=== PATIENT | female | born 1995 | race American Indian/Alaskan Native ===

== ENCOUNTER 2018-12-28 11:16 | Outpatient (CLI) | payer OTHER ==
[2018-12-28] MEDS ORDERED: LACTATED RINGERS 2,000 ML ONE (12:14)
[2018-12-28 12:47] VITALS: BP 107/70
[2018-12-28] MEDS ORDERED: LACTATED RINGERS 1,000 ML IV ONE (15:36)
== END 2018-12-28 13:49 | disposition home or self-care (01) ==
LOC: TRG 11:16
PROVIDERS: ATTEND Obstetrics & Gynecology
DX: O47.03 False labor before 37 completed weeks of gestation, third trimester (principal); Z3A.37 37 weeks gestation of pregnancy
CPT/HCPCS: J7120

== ENCOUNTER 2019-01-02 23:19 | Inpatient (IN) | payer OTHER ==
[2019-01-03] MEDS ORDERED: PITOCin/NS 30 UNIT/500ML 30,000 MILLIUNITS/500 ML BAG IV ONE (00:23)
[2019-01-03] MEDS ORDERED: LACTATED RINGERS 1,000 ML ONE (00:23)
[2019-01-03] MEDS ORDERED: AMPICILLIN/NS 2 GM/100 ML 2 GM/100 ML BAG IV ONE ×2 (00:25→00:33)
[2019-01-03] MEDS ORDERED: BRETHINE SUB-Q PRN (00:33)
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
[2019-01-03] MEDS ORDERED: LACTATED RINGERS 1,000 ML IV SCH (01:00)
[2019-01-03] MEDS ORDERED: PITOCin/NS 20 UNIT/1000ML DRIP 20 UNITS/1,000 ML BAG IV SCH (01:00)
[2019-01-03] MEDS ORDERED: PITOCin/NS 30 UNIT/500ML 30 UNITS/500 ML BAG IV SCH (01:00)
[2019-01-03 01:14] LABS: Hematocrit 30.6 % (30.3-42.9); Hemoglobin 10.8 gm/dl (10.1-14.3); Mean Corpuscular HGB Conc 35 % (30-34); Mean Corpuscular Volume 95 fl (79-97); Platelet Count 254 K/mm3 (140-440); Red Blood Count 3.24 M/mm3 (3.65-5.03); Red Cell Distribution Width 13.7 % (13.2-15.2)
[2019-01-03 02:02] LABS: Hepatitis C Virus Antibody Non-Reactive (NonReactive)
--- NOTE | 2019-01-03 02:03 | Ultrasound Report ---
PROCEDURE: US OB FOLLOW UP TECHNIQUE: Real-time sonography performed for focused follow-up or re-evaluation of each size/ growth parameters and amniotic fluid or re-evaluation of suspected or confirmed abnormality on prior imaging. HISTORY: Gestational age, placental location, present COMPARISONS: None . FINDINGS: MATERNAL Uterus: Within normal limits . Cervix length: cm. Internal Os: Closed . FETUS IUP: Single living intrauterine . Position: Cephalic . Placental position: Fundal, without previa . Amniotic fluid volume: Decreased at 4.2 cm. . Heart rate and rhythm: 136 BPM, Regular . anatomic survey: Not performed . MEASUREMENTS BPD: 9.1 cm corresponding to 36 weeks and 6 days . HC: 32.2 cm corresponding to 36 weeks and 2 days . AC: 33.7 cm corresponding to 37 weeks and 4 days . FL: 7.1 cm corresponding to 36 weeks and 4 days . Mean Gestational Age (composite criteria): 36 weeks and 6 days . Ratio biometry: Normal . Estimated Weight: 3121 grams +/- grams. ounces +/- .ounces. percentile. Interval growth: Appropriate . Estimated Due Date (earliest scan): 01/25/2019 . IMPRESSION: 1. Single living intrauterine gestation at approximately 36 weeks and 6 days . 2. EDC by US 01/25/2019 . This document is electronically signed by Kapil Corley MD., January 03 2019 02:00:18 AM ET
[2019-01-03] MEDS: SUBLIMAZE IV PRN ×5 (04:52→16:42)
[2019-01-03] MEDS: AMPICILLIN/NS 1 GM/50 ML 1 GM/50 ML BAG IV SCH ×4 (04:54→19:15)
[2019-01-03] MEDS ORDERED: ZOFRAN IV ONE (09:00)
--- NOTE | 2019-01-03 16:25 | Anesthesia Day of Surgery ---
Anesthesia Day of Surgery - Day of Surgery Patient Examined: Yes Patient H&P Reviewed: Yes Patient is NPO: Yes Beta Blockers: No Cardiac Clearance: No Pulmonary Clearance: No Sang's Test: N/A
[2019-01-03] MEDS ORDERED: NARCAN 2 MG/2 ML IV PRN (16:26)
--- NOTE | 2019-01-03 16:26 | Anesthesia Consultation ---
Anesthesia Consult and Med Hx - Airway Anesthetic Teeth Evaluation: Good ROM Head & Neck: Adequate Mental/Hyoid Distance: Adequate Mallampati Class: Class II Intubation Access Assessment: Probably Good - Pulmonary Exam CTA: Yes - Cardiac Exam Cardiac Exam: RRR - Pre-Operative Health Status ASA Pre-Surgery Classification: ASA2 Proposed Anesthetic Plan: Epidural - Pulmonary Hx Asthma: No COPD: No Hx Pneumonia: No - Cardiovascular System Hx Hypertension: No - Central Nervous System Hx Seizures: No Hx Psychiatric Problems: No - Endocrine Hx Renal Disease: No Hx End Stage Renal Disease: No Hx Hypothyroidism: No Hx Hyperthyroidism: No - Hematic Hx Anemia: No Hx Sickle Cell Disease: No - Other Systems Hx Alcohol Use: No
[2019-01-03] MEDS ORDERED: MARCAINE 0.25% INFILTRATI ONE (16:55)
[2019-01-03] MEDS ORDERED: fentaNYL-BUPIV 2 MCG/ML-0.125% 200 MCG/100 ML BAG EPIDURAL SCH (17:00)
[2019-01-04] MEDS ORDERED: LANSINOH TP PRN (01:47)
[2019-01-04] MEDS ORDERED: PHENERGAN PR PRN (01:47)
[2019-01-04] MEDS ORDERED: MILK OF MAGNESIA PO PRN (01:47)
[2019-01-04] MEDS ORDERED: TUCKS PAD TP PRN (01:47)
[2019-01-04] MEDS ORDERED: NORCO 5/325 PO PRN (01:47)
[2019-01-04] MEDS ORDERED: DULCOLAX PR PRN (01:47)
[2019-01-04] MEDS ORDERED: BENADRYL PO PRN (01:47)
[2019-01-04] MEDS ORDERED: SODIUM CHLORIDE FLUSH SYRINGE 10 ML IV PRN (02:00)
--- NOTE | 2019-01-04 02:03 | Procedure Note ---
OB Delivery Note - Delivery Date of Delivery: 01/04/19 Surgeon: ASCENCION KUNZ Estimated blood loss: 200cc - Vaginal Delivery presentation: vertex Delivery position: OA Intrapartum events: none Delivery augmentation: pitocin Delivery monitor: external FHT, external uterine Route of delivery: Delivery placenta: spontaneous Delivery cord: 3 umbilical vessels Episiotomy: none Delivery laceration: none Anesthesia: epidural Delivery comments: Spontaneous vaginal delivery at 00:20 of liveborn female weighing 7 lb. 7 oz. over intact perineum with apgars of 8/9. Baby placed immediately on mother's chest after delivery and dried and bulb suctioned. Spontaneous cry and respirations. 3 vessel cord double clamped and cut after cessation of pulsation. Spontaneous delivery of intact placenta and membranes by hernandez mechanism at 00:25. EBL 200 cc. Pitocin to IV fluids after delivery of placenta. Fundus firm and midline. Vaginal sweep negative. No lacerations noted. Sponge count correct. Mother and baby stable in birthing room.
[2019-01-04] MEDS: IBUPROFEN PO SCH ×4 (02:32→21:54)
[2019-01-04] MEDS: COLACE PO SCH ×2 (10:09→21:53)
[2019-01-04 20:03] LABS: Hematocrit 30.6 % (30.3-42.9); Hemoglobin 10.5 gm/dl (10.1-14.3)
[2019-01-05] MEDS: COLACE PO SCH ×2 (10:36→23:29)
--- NOTE | 2019-01-05 11:18 | Progress Note ---
Assessment and Plan - Patient Problems (1) (normal spontaneous vaginal delivery) Onset Date: 01/05/19 Current Visit: Yes Status: Resolved Plan to address problem: A: S/P - PPD #1 Doing well Asymptomatic anemia - stable P: May go home tomorrow. Subjective - Subjective Date of service: 01/05/19 Principal diagnosis: s/p - PPD #1 Interval history: Pt is feeling well without complaints. Bleeding improved. Patient reports: appetite normal, voiding normally, pain well controlled, flatus, ambulating normally, no dizzy ambulation, no nauseated [place]: doing well, bottle feeding Objective - Vital Signs Latest vital signs: Vital Signs Temp Pulse Resp BP BP Pulse Ox 01/05/19 08:20 98.5 F 67 20 127/79 97 01/04/19 17:41 98.4 F 79 20 97 01/04/19 12:55 98.4 F 85 20 131/82 98 - Exam Breasts: Present: deferred Abdomen: Present: normal appearance, soft Uterus: Present: normal, firm, fundal height below umbilicus Extremities: Present: normal - Labs Labs: Laboratory Tests 01/03/19 01/03/19 01/03/19 00:55 00:55 00:55 WBC 5.7 RBC 3.24 L Hgb 10.8 Hct 30.6 MCV 95 MCH 34 H MCHC 35 H RDW 13.7 Plt Count 254 Hemoglobin A1c RPR Nonreactive Hepatitis C Antibody HIV 1&2 Antibody Rapid HIV P24 Antigen Rubella IgG Antibody Blood Type O POSITIVE Antibody Screen Negative 01/03/19 01/03/19 01/03/19 00:55 00:55 00:55 WBC RBC Hgb Hct MCV MCH MCHC RDW Plt Count Hemoglobin A1c 4.8 RPR Hepatitis C Antibody Non-reactive HIV 1&2 Antibody Rapid Non react HIV P24 Antigen Non react Rubella IgG Antibody Immune Blood Type Antibody Screen 01/04/19 19:18 WBC RBC Hgb 10.5 Hct 30.6 MCV MCH MCHC RDW Plt Count Hemoglobin A1c RPR Hepatitis C Antibody HIV 1&2 Antibody Rapid HIV P24 Antigen Rubella IgG Antibody Blood Type Antibody Screen
--- NOTE | 2019-01-05 12:53 | Discharge Summary ---
Providers - Providers Date of Admission: 01/02/19 23:19 Date of discharge: 01/06/19 Attending physician: SHIRA HOWARD Primary care physician: SHIRA HOWARD Hospitalization Reason for admission: rupture of membranes, IUP at term Delivery: Episiotomy: none Laceration: none Other procedures: none complications: none Discharge diagnosis: IUP at term delivered baby: female Hospital course: Unremarkable. Condition at discharge: Good Disposition: DC-01 TO HOME OR SELFCARE - Discharge Diagnoses (1) (normal spontaneous vaginal delivery) Status: Resolved Plan - Discharge Medications Prescriptions: Ferrous Sulfate [Feosol 325 MG tab] 325 mg PO BID #60 tablet Ibuprofen [Motrin 600 MG tab] 600 mg PO Q6H #30 tablet Pnv No.95/Ferrous Fum/Folic AC [Prenavite Tablet] 1 each PO DAILY #30 tablet - Provider Discharge Summary Activity: routine, no sex for 6 weeks, no heavy lifting 4 weeks, no strenuous exercise Diet: routine Instructions: routine Additional instructions: [] Smoking cessation referral if applicable(refer to patient education folder for contact #) [] Refer to [facility] Booklet Call your doctor immediately for: * Fever > 100.5 * Heavy vaginal bleeding ( >1 pad per hour) * Severe persistent headache * Shortness of breath * Reddened, hot, painful area to leg or breast * Drainage or odor from incision. * Keep incision clean and dry at all times and follow doctor's instructions regarding bathing/showering - Follow up plan Follow up: SHIRA HOWARD MD [Primary Care Provider] - 6 Weeks PAP[facility] NEW CNM [Advanced Practice Nurse] - 6 Weeks
[2019-01-06] MEDS: COLACE PO SCH (10:10)
[2019-01-06] MEDS: IBUPROFEN PO SCH (10:11)
[2019-01-06 14:59] VITALS: BP 131/91
== END 2019-01-06 17:40 | disposition home or self-care (01) | DRG 775 ==
LOC: LD 23:19 → OB 01-04 03:23
PROVIDERS: ADMIT Obstetrics & Gynecology; ATTEND Obstetrics & Gynecology
PROC: 10E0XZZ Delivery of Products of Conception, External Approach (ICD-10-PCS; principal; 2019-01-04)
PROC: 3E0R3BZ Introduction of Anesthetic Agent into Spinal Canal, Percutaneous Approach (ICD-10-PCS; 2019-01-04)
PROC: 00HU33Z Insertion of Infusion Device into Spinal Canal, Percutaneous Approach (ICD-10-PCS; 2019-01-04)
DX: O99.214 Obesity complicating childbirth (principal); Z3A.38 38 weeks gestation of pregnancy; Z37.0 Single live birth; E66.9 Obesity, unspecified; Z83.3 Family history of diabetes mellitus; O90.81 Anemia of the puerperium; D64.9 Anemia, unspecified
CPT/HCPCS: 36415; 76816; 83036; 85014; 85018; 85027; 86592; 86706; 86762; 86803; 86850; 86900; 86901; 87806; G0378; A6250; J0290; J2405; J2590; J3010; J7120